=== PATIENT | male | born 1960 | race Caucasian/White ===

== ENCOUNTER → 2022-12-27 10:38 | Outpatient (REF) | payer OTHER, SELFPAY ==
--- NOTE | 2022-12-27 10:44 | CA_ITS ---
Acquisition Time: 2022-12-27 10:52:33 Total Exercise Time: 00:08:01 Test Indications: Abnormal ECG Medications: AMLODIPINE ASA ATORVASTATIN BUPROPION CIALIS Protocol: ALEX Max HR: 160 BPM 101% of Pred: 157 BPM Max BP: 214/068 mmHG Max Work Load: 10.1 METS Exercise stress test with exercise 8 min 1 sec of Alex protocol, achieving 101% MPHR, with mild sob, no chest discomfort, without arrythmia, with hypertensive response to exercise with max BP 214/68, without EKG changes meeting criteria for ischemia. Echo images obtained by [employer] at rest and immediately post peak exercise. Definity contrast used. He was recovered for 8 min and BP returned to baseline 128/70. He tells me he did take his Amlodipine this am. Test reviewed with Dr Mari. Referred By: Elías Gould Overread By: JONATHAN OSHAE
== END ==
LOC: HO.CARD 10:38
PROVIDERS: PCP Nurse Practitioner Family; Visit Provider Internal Medicine Cardiovascular Disease
DX: R00.2 Palpitations (principal)
CPT/HCPCS: 93350; Q9957